=== PATIENT | female | born 1935 | race Caucasian/White ===

== ENCOUNTER 2017-12-13 18:36 | Inpatient (IN) | payer OTHER, MEDICARE ==
[~2017-12-13] VITALS: Ht 162.6 cm; Wt 83.0 kg
[2017-12-13] MEDS ORDERED: MIDAZOLAM HCL 5 MG/ML VIAL (1 ML) ONE (18:40)
[2017-12-13] MEDS ORDERED: IOHEXOL 350 MG/ML 10 ML VIAL (for RAD DIAG) IVCONTRAST ONE (18:45)
[2017-12-13 18:54] VITALS: O2SAT 99
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
[2017-12-13 19:08] LABS: AUTOMATED NEUTROPHIL # 5.3 TH/MM3 (1.8-7.7); BASOPHIL # 0.1 TH/MM3 (0-0.2); BASOPHIL % 1.2 % (0.0-2.0); EOSINOPHIL # 0.2 TH/MM3 (0-0.4); EOSINOPHIL % 2.1 % (0.0-4.0); HEMATOCRIT 42.9 % (35.0-46.0); HEMOGLOBIN 13.9 GM/DL (11.6-15.3); LYMPH % 34.3 % (9.0-44.0); LYMPHOCYTE # 3.5 TH/MM3 (1.0-4.8); MEAN CELL VOLUME 87.7 FL (80.0-100.0); MEAN CORPUSCULAR HEMOGLOBIN 28.4 PG (27.0-34.0); MEAN CORPUSCULAR HGB CONC 32.3 % (32.0-36.0); MONO % 10.4 % (0.0-8.0); PLATELET COUNT 317 TH/MM3 (150-450); RED BLOOD COUNT 4.88 MIL/MM3 (4.00-5.30); WHITE BLOOD COUNT 10.1 TH/MM3 (4.0-11.0)
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
--- NOTE | 2017-12-13 19:19 | RADRPT ---
EXAM DATE: 12/13/2017 7:08 PM EDT AGE/SEX: 89 years / Female INDICATIONS: Post reduction of left ankle dislocation. CLINICAL DATA: This is the patient's initial encounter. Patient reports that signs and symptoms have been present for 1 day and indicates a pain score of 10/10. MEDICAL/SURGICAL HISTORY: Non-responsive. Non-responsive. COMPARISON: No prior [place] exams available for comparison. FINDINGS: Nondisplaced fractures are identified through the distal left fibula and tibia. There is realignment of the ankle joint following closed reduction. Hindfoot is well aligned. CONCLUSION: Satisfactory reduction of a fracture dislocation involving the left ankle. Fracture distal tibia and fibula. Intact hindfoot. Electronically signed by: Blu Flynn MD 12/13/2017 7:18 PM EDT
[2017-12-13 19:22] LABS: PROTHROMBIN TIME - PATIENT 10.6 SEC (9.8-11.6)
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
[2017-12-13 19:56] VITALS: O2SAT 96
[2017-12-13] MEDS ORDERED: TYLE325T PO (20:29)
[2017-12-13] MEDS ORDERED: CHLORHEXIDINE GLUCONATE 2 % 1 PACK (2 CLOTHS) TOP PRN (20:30)
[2017-12-13] MEDS ORDERED: CYCL5TAB PO (20:30)
[2017-12-13] MEDS ORDERED: DIAZ5TAB PO (20:30)
[2017-12-13] MEDS ORDERED: FLUO0.1S9 (20:30)
[2017-12-13] MEDS ORDERED: fish oil PO (20:30)
[2017-12-13] MEDS ORDERED: CARV12.52 PO (20:30)
[2017-12-13] MEDS ORDERED: AMLO10TA2 PO (20:30)
[2017-12-13] MEDS ORDERED: ASPI-516 CHEW (20:30)
[2017-12-13] MEDS ORDERED: NURSING INFORMATION XX SCH (20:30)
[2017-12-13] MEDS ORDERED: APIX5TAB PO (20:30)
[2017-12-13] MEDS ORDERED: FERR325T18 PO (20:30)
[2017-12-13] MEDS: DOCUSATE SODIUM 100 MG CAP PO SCH (21:00)
[2017-12-13] MEDS: MORPHINE SULFATE 4 MG/ML INJ IV PUSH PRN ×2 (21:10→23:14)
[2017-12-13] MEDS: ONDANSETRON ODT 4 MG TAB PO PRN (21:10)
[2017-12-13] MEDS: LACTATED RINGER'S 1000 ML INJ 1,000 ML IV SCH (21:11)
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
[2017-12-13 21:45] VITALS: BP 153/98; PULSE 78; RESP 20; O2SAT 97
[2017-12-13 22:05] VITALS: BP 136/76; PULSE 79; RESP 20; TEMP 97.6; O2SAT 97
[2017-12-14] VITALS: BP 122/76; PULSE 82; RESP 22; TEMP 97.4; O2SAT 95
[2017-12-14] MEDS: MORPHINE SULFATE 4 MG/ML INJ IV PUSH PRN ×6 (01:13→20:29)
[2017-12-14] MEDS: ACETAMINOPHEN 1000 MG/100 ML 100 ML IV PRN ×3 (01:13→20:22)
[2017-12-14] MEDS ORDERED: LACTATED RINGER'S 1000 ML IV PRN (01:15)
[2017-12-14] MEDS ORDERED: CHLORHEXIDINE GLUCONATE 2 % 1 PACK (2 CLOTHS) TOPICAL PRN (01:15)
[2017-12-14] MEDS ORDERED: METOPROLOL TARTRATE 25 MG TAB PO PRN (01:15)
[2017-12-14] MEDS ORDERED: POVIDONE IODINE 5% (ANTISEPSIS KIT) 4 APPLICATIONS EACH NARE PRN (01:15)
[2017-12-14] MEDS ORDERED: SODIUM CHLORID 0.9% 500 ML IV PRN (01:15)
[2017-12-14] MEDS: KETOROLAC TROMETHAMINE 30 MG/ML (IVP) VIAL IV PUSH PRN ×2 (02:45→15:43)
[2017-12-14 04:00] VITALS: BP 130/63; PULSE 74; RESP 18; TEMP 98; O2SAT 95
[2017-12-14] MEDS ORDERED: CHLORHEXIDINE GLUCONATE 2 % 1 PACK (2 CLOTHS) TOP SCH (04:00)
[2017-12-14 04:05] LABS: AUTOMATED NEUTROPHIL # 8.3 TH/MM3 (1.8-7.7); BASOPHIL % 0.4 % (0.0-2.0); EOSINOPHIL # 0.1 TH/MM3 (0-0.4); EOSINOPHIL % 0.7 % (0.0-4.0); HEMATOCRIT 32.6 % (35.0-46.0); HEMOGLOBIN 10.7 GM/DL (11.6-15.3); LYMPH % 16.4 % (9.0-44.0); LYMPHOCYTE # 1.9 TH/MM3 (1.0-4.8); MEAN CELL VOLUME 87.3 FL (80.0-100.0); MEAN CORPUSCULAR HEMOGLOBIN 28.5 PG (27.0-34.0); MEAN CORPUSCULAR HGB CONC 32.7 % (32.0-36.0); MEAN PLATELET VOLUME 7.6 FL (7.0-11.0); MONO % 10.5 % (0.0-8.0); MONOCYTE # 1.2 TH/MM3 (0-0.9); PLATELET COUNT 243 TH/MM3 (150-450); RED BLOOD COUNT 3.74 MIL/MM3 (4.00-5.30); RED CELL DISTRIBUTION WIDTH 13.8 % (11.6-17.2); WHITE BLOOD COUNT 11.5 TH/MM3 (4.0-11.0)
[2017-12-14 04:32] LABS: BICARBONATE 27.7 MEQ/L (21.0-32.0); CALCIUM 7.8 MG/DL (8.5-10.1); CREATININE 1.16 MG/DL (0.50-1.00)
--- NOTE | 2017-12-14 07:53 | EKG ---
Date Performed: 12/14/2017 Time Performed: 04:51:12 PTAGE: 82 years EKG: Sinus rhythm . Lateral T wave changes are nonspecific Borderline ECG NO PREVIOUS TRACING DOCTOR: Boogie Bryant Interpretating Date/Time 12/14/2017 07:50:59
[2017-12-14 08:00] VITALS: BP 123/58; PULSE 68; RESP 16; TEMP 98.2; O2SAT 93
[2017-12-14] MEDS: DOCUSATE SODIUM 100 MG CAP PO SCH ×2 (09:00→20:23)
[2017-12-14] MEDS: MAGNESIUM HYDROXIDE SUSP 30 ML CUP PO SCH ×2 (09:00→20:23)
[2017-12-14] MEDS: FAMOTIDINE 20 MG TAB PO SCH ×2 (09:00→20:23)
[2017-12-14] MEDS: LACTATED RINGER'S 1000 ML INJ 1,000 ML IV SCH ×2 (09:03→20:28)
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
[2017-12-14 12:00] VITALS: BP 148/67; PULSE 75; RESP 16; TEMP 98; O2SAT 94
[2017-12-14] MEDS ORDERED: DIAZEPAM 5 MG TAB PO PRN (12:45)
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
--- NOTE | 2017-12-14 14:47 | RADRPT ---
EXAM DATE: 12/14/2017 2:40 PM EDT AGE/SEX: 82 years / Female INDICATIONS: Left ankle pain, follow up fracture. CLINICAL DATA: This is the patient's subsequent encounter. Patient reports that signs and symptoms h ave been present for 1 week and indicates a pain score of 10/10. MEDICAL/SURGICAL HISTORY: None. None. COMPARISON: . FINDINGS: Views of the left ankle demonstrate soft tissue swelling. Bimalleolar fractures with displacement. An kle mortise intact. No radiopaque foreign bodies seen. CONCLUSION: Bimalleolar fractures. Electronically signed by: Mane Garrison MD 12/14/2017 2:46 PM EDT
[2017-12-14 16:00] VITALS: BP 166/73; PULSE 75; RESP 16; TEMP 97.9; O2SAT 97
[2017-12-14 20:00] VITALS: BP 127/61; PULSE 76; RESP 17; TEMP 98.1; O2SAT 96
[2017-12-14] MEDS: CARVEDILOL 12.5 MG TAB PO SCH (20:24)
[2017-12-14] MEDS ORDERED: ACETAMINOPHEN/HYDROcodone 325 MG/5 MG TAB PO PRN (20:45)
[2017-12-14] MEDS: KETOROLAC TROMETHAMINE 30 MG/ML (IVP) VIAL IV PUSH SCH (22:12)
[2017-12-14] MEDS: ACETAMINOPHEN/HYDROcodone 325 MG/7.5 MG TAB PO PRN (22:12)
[2017-12-15] VITALS: BP 168/70; PULSE 68; RESP 18; TEMP 98; O2SAT 93
[2017-12-15] MEDS: MORPHINE SULFATE 4 MG/ML INJ IV PUSH PRN ×3 (00:24→14:44)
[2017-12-15] MEDS ORDERED: METOPROLOL TARTRATE 25 MG TAB PO PRN (03:00)
[2017-12-15] MEDS ORDERED: CHLORHEXIDINE GLUCONATE 2 % 1 PACK (2 CLOTHS) TOPICAL PRN (03:00)
[2017-12-15] MEDS ORDERED: LACTATED RINGER'S 1000 ML IV PRN (03:00)
[2017-12-15] MEDS ORDERED: SODIUM CHLORID 0.9% 500 ML IV PRN (03:00)
[2017-12-15] MEDS ORDERED: POVIDONE IODINE 5% (ANTISEPSIS KIT) 4 APPLICATIONS EACH NARE PRN (03:00)
[2017-12-15] MEDS: ONDANSETRON ODT 4 MG TAB PO PRN (03:49)
[2017-12-15 04:00] VITALS: BP 163/70; PULSE 73; RESP 18; TEMP 97.9; O2SAT 93
[2017-12-15] MEDS: KETOROLAC TROMETHAMINE 30 MG/ML (IVP) VIAL IV PUSH SCH ×4 (06:07→23:33)
[2017-12-15] MEDS: ACETAMINOPHEN/HYDROcodone 325 MG/7.5 MG TAB PO PRN ×4 (06:08→22:14)
[2017-12-15 06:13] LABS: AUTOMATED NEUTROPHIL # 7.2 TH/MM3 (1.8-7.7); BASOPHIL % 0.4 % (0.0-2.0); EOSINOPHIL # 0.2 TH/MM3 (0-0.4); EOSINOPHIL % 2.3 % (0.0-4.0); HEMATOCRIT 30.9 % (35.0-46.0); HEMOGLOBIN 10.2 GM/DL (11.6-15.3); LYMPHOCYTE # 1.3 TH/MM3 (1.0-4.8); MEAN CELL VOLUME 88.7 FL (80.0-100.0); MEAN CORPUSCULAR HEMOGLOBIN 29.2 PG (27.0-34.0); MEAN CORPUSCULAR HGB CONC 32.9 % (32.0-36.0); MEAN PLATELET VOLUME 7.9 FL (7.0-11.0); MONO % 10.7 % (0.0-8.0); NEUT % 73.6 % (16.0-70.0); PLATELET COUNT 202 TH/MM3 (150-450); RED BLOOD COUNT 3.49 MIL/MM3 (4.00-5.30); RED CELL DISTRIBUTION WIDTH 13.4 % (11.6-17.2); WHITE BLOOD COUNT 9.7 TH/MM3 (4.0-11.0)
[2017-12-15 06:40] LABS: CALCIUM 7.9 MG/DL (8.5-10.1); CREATININE 0.92 MG/DL (0.50-1.00); MAGNESIUM 2.6 MG/DL (1.5-2.5)
[2017-12-15 08:00] VITALS: BP 124/58; PULSE 70; RESP 18; TEMP 98.4; O2SAT 94
[2017-12-15] MEDS: CARVEDILOL 12.5 MG TAB PO SCH ×2 (08:11→19:49)
[2017-12-15] MEDS: MAGNESIUM HYDROXIDE SUSP 30 ML CUP PO SCH ×2 (08:11→19:48)
[2017-12-15] MEDS: FAMOTIDINE 20 MG TAB PO SCH ×2 (08:11→19:49)
[2017-12-15] MEDS: DOCUSATE SODIUM 100 MG CAP PO SCH ×2 (08:11→19:49)
[2017-12-15] MEDS: LACTATED RINGER'S 1000 ML INJ 1,000 ML IV SCH (08:20)
[2017-12-15] MEDS ORDERED: PILL SPLITTER OTHER PRN (08:45)
[2017-12-15] MEDS: CYCLOBENZAPRINE HCL 10 MG TAB PO SCH ×2 (10:22→19:49)
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
[2017-12-15 12:00] VITALS: BP 134/60; PULSE 66; RESP 18; TEMP 98; O2SAT 92
[2017-12-15] MEDS: ENOXAPARIN SODIUM 40 MG/0.4 ML SYRINGE SQ SCH (12:51)
[2017-12-15 16:00] VITALS: BP 114/57; PULSE 64; RESP 18; TEMP 97.9; O2SAT 91
[2017-12-15 19:47] VITALS: BP 125/58; PULSE 60; RESP 18; TEMP 97.9; O2SAT 92
[2017-12-16] VITALS (7 sets, daily range): BP systolic 100–134; BP diastolic 53–60; PULSE 58–68; RESP 17–20; TEMP 97.1–98.3; O2SAT 91–95
[2017-12-16] MEDS: KETOROLAC TROMETHAMINE 30 MG/ML (IVP) VIAL IV PUSH SCH ×3 (05:56→18:00)
[2017-12-16] MEDS ORDERED: ACETAMINOPHEN 325 MG TAB PO PRN (07:15)
[2017-12-16] MEDS: MAGNESIUM HYDROXIDE SUSP 30 ML CUP PO SCH ×2 (09:00→20:58)
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
[2017-12-16] MEDS: POLYETHYLENE GLYCOL 17 GM PKG PO SCH (09:46)
[2017-12-16] MEDS: DOCUSATE SODIUM 50 MG/SENNA 8.6 MG TAB PO SCH ×2 (09:46→21:00)
[2017-12-16] MEDS: FAMOTIDINE 20 MG TAB PO SCH ×2 (09:46→20:59)
[2017-12-16] MEDS: DOCUSATE SODIUM 100 MG CAP PO SCH ×2 (09:46→20:58)
[2017-12-16] MEDS: CARVEDILOL 12.5 MG TAB PO SCH ×2 (09:46→20:59)
[2017-12-16] MEDS: FERROUS SULFATE 325 MG (65 MG ELEMENTAL IRON) TAB PO SCH (09:46)
[2017-12-16] MEDS: CYCLOBENZAPRINE HCL 10 MG TAB PO SCH ×2 (09:47→20:59)
[2017-12-16] MEDS: ACETAMINOPHEN/HYDROcodone 325 MG/7.5 MG TAB PO PRN (09:48)
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
[2017-12-16] MEDS: ENOXAPARIN SODIUM 40 MG/0.4 ML SYRINGE SQ SCH (11:13)
[2017-12-16] MEDS: MORPHINE SULFATE 4 MG/ML INJ IV PUSH PRN ×2 (11:13→13:10)
--- NOTE | 2017-12-16 13:49 | RADRPT ---
EXAM DATE: 12/16/2017 1:03 PM EDT AGE/SEX: 82 years / Female INDICATIONS: Atrial fibrillation. CLINICAL DATA: This is the patient's initial encounter. Patient reports that signs and symptoms have been present for 1 day and indicates a pain score of 8/10. MEDICAL/SURGICAL HISTORY: Hypercholesterolemia. Hypertension. Coronary artery disease. Myocard ial infarction. Left ankle fracture. Abdomen-benign diaphragmatic hernia. CABG. Bilateral knee surge ry. COMPARISON: No prior [place] exams available for comparison. No external comparison. VELOCITY PARAMETERS: ICA/CCA Ratio: Right 0.7 , Left 1.2 ICA: Right 96 cm/sec, Left 110 cm/sec CCA: Right 142 cm/sec, Left 93 cm/sec ECA: Right 270 cm/sec, Left 97 cm/sec Vertebral: Right 79 cm/sec antegrade, Left Nonvisualized cm/sec absent FINDINGS: Right Carotid: No significant stenosis is visualized. The waveforms are within normal limits. Left Carotid: No significant stenosis is visualized. The waveforms are within normal limits Left vert is not visualized. CONCLUSION: Negative for hemodynamically significant stenosis. Left vertebral artery not visualized. Electronically signed by: Carlin Pina MD 12/16/2017 1:48 PM EDT
--- NOTE | 2017-12-16 14:39 | ECHRPT ---
Indication: ATRIAL FIB/FLUTTER CONCLUSIONS Normal left ventricular size. Wall thickness is normal. The left ventricular systolic function is hyperdynamic with an estimated ejection fraction in the ra nge of 65- 70%. Mild mitral valve regurgitation. Mild mitral annular calcification. There is moderate tricuspid valve regurgitation. The estimated pulmonary arterial pressure is 53.6 mmHg. There is estimated moderate pulmonary hypertension present (range 50-60 mmHg). BP: 124 / 58 HR: Rhythm: Sinus MEASUREMENTS (Male / Female) Normal Values Technical Quality:Fair 2D ECHO LV Diastolic Diameter PLAX 4.3 cm 4.2 - 5.9 / 3.9 - 5.3 cm LV Systolic Diameter PLAX 2.8 cm IVS Diastolic Thickness 0.8 cm 0.6 - 1.0 / 0.6 - 0.9 cm LVPW Diastolic Thickness 0.8 cm 0.6 - 1.0 / 0.6 - 0.9 cm LV Relative Wall Thickness 0.4 RV Internal Dim ED PLAX 2.2 cm LVOT Diameter 1.6 cm Aortic Root Diameter 2.3 cm LA Systolic Diameter LX 3.4 cm 3.0 - 4.0 / 2.7 - 3.8 cm M-MODE AV Cusp Separation MM 1.7 cm DOPPLER AV Peak Velocity 199.0 cm/s AV Peak Gradient 15.8 mmHg AV Mean Gradient 8.0 mmHg AV Velocity Time Integral 46.3 cm LVOT Peak Velocity 79.7 cm/s LVOT Peak Gradient 2.5 mmHg LVOT Velocity Time Integral 19.3 cm AV Area Cont Eq vti 0.8 cm AV Area Cont Eq pk 0.8 cm Mitral E Point Velocity 122.0 cm/s Mitral A Point Velocity 76.5 cm/s Mitral E to A Ratio 1.6 TR Peak Velocity 330.0 cm/s TR Peak Gradient 43.6 mmHg Right Atrial Pressure 10.0 mmHg Pulmonary Artery Systolic Pressu 53.6 mmHg Right Ventricular Systolic Press 53.6 mmHg PV Peak Velocity 82.0 cm/s PV Peak Gradient 2.7 mmHg FINDINGS LEFT VENTRICLE Normal left ventricular size. Wall thickness is normal. The left ventricular systolic function is hyperdynamic with an estimated ejection fraction in the ra nge of 65- 70%. RIGHT VENTRICLE Normal right ventricular size and systolic function. LEFT ATRIUM The left atrial size is normal. RIGHT ATRIUM The right atrial size is normal. ATRIAL SEPTUM No atrial level shunt is demonstrated by color flow Doppler interrogation. AORTA The aortic root and proximal ascending aorta are normal in size on limited imaging. MITRAL VALVE Mild mitral valve regurgitation. Mild mitral annular calcification. AORTIC VALVE Trileaflet aortic valve. No aortic valve stenosis or regurgitation. TRICUSPID VALVE There is mild tricuspid valve regurgitation. The estimated pulmonary arterial pressure is 53.6 mmHg. There is estimated moderate pulmonary hypertension present (range 50-60 mmHg). PULMONARY VALVE No pulmonary valve regurgitation or stenosis. VESSELS The inferior vena cava is normal in size. PERICARDIUM No pericardial effusion. Scooter Hernandez MD, FACC, [facility] (Electronically Signed) Final Date:16 Dec 2017 14:38
[2017-12-16] MEDS ORDERED: MORPHINE SULFATE 4 MG/ML INJ IV PUSH PRN (14:45)
[2017-12-16] MEDS: ACETAMINOPHEN/HYDROcodone 325 MG/10 MG TAB PO PRN ×2 (16:06→20:58)
--- NOTE | 2017-12-16 21:24 | PD.POD ---
Subjective Podiatric Problems Left ankle fracture Past Med/Surg/Social History Social History Smoking Status: Never Smoker Objective Vital Signs Vital Signs Date Time Temp Pulse Resp B/P (MAP) Pulse Ox O2 Delivery O2 Flow Rate FiO2 12/16/17 16:00 97.8 60 18 112/56 (74) 94 12/16/17 12:25 97.7 59 18 124/58 (80) 91 12/16/17 08:00 97.5 58 17 112/53 (72) 92 12/16/17 04:00 98.1 63 18 129/58 (81) 93 12/16/17 00:00 97.9 64 20 103/60 (74) 94 Coded Allergies: Sulfa (Sulfonamide Antibiotics) (Verified Allergy, Mild, 12/13/17) levofloxacin (Verified Allergy, Mild, 12/13/17) Uncoded Allergies: sulfa (Allergy, Severe, tongue swelling, 12/13/17) Assessment & Plan A/P Left ankle fracture Plan to OR tomorrow 2 pm for ORIF left ankle OK with discharge home when pain controlled on oral medications Nonweightbearing left lower extremity NPO after midnight Anshul Rodriguez DPM December 16, 2017 21:24
[2017-12-17] MEDS: KETOROLAC TROMETHAMINE 30 MG/ML (IVP) VIAL IV PUSH SCH ×4 (00:05→17:40)
[2017-12-17] MEDS ORDERED: SODIUM CHLORID 0.9% 500 ML INJ 500 ML IV ONE (01:00)
[2017-12-17 08:00] VITALS: BP 117/57; PULSE 60; RESP 16; TEMP 97.7; O2SAT 98
[2017-12-17] MEDS: FERROUS SULFATE 325 MG (65 MG ELEMENTAL IRON) TAB PO SCH (09:00)
[2017-12-17] MEDS: CARVEDILOL 12.5 MG TAB PO SCH ×2 (09:00→20:24)
[2017-12-17] MEDS: MAGNESIUM HYDROXIDE SUSP 30 ML CUP PO SCH ×2 (09:00→20:24)
[2017-12-17] MEDS: DOCUSATE SODIUM 50 MG/SENNA 8.6 MG TAB PO SCH ×2 (09:00→20:24)
[2017-12-17] MEDS: FAMOTIDINE 20 MG TAB PO SCH ×2 (09:00→20:24)
[2017-12-17] MEDS: DOCUSATE SODIUM 100 MG CAP PO SCH ×2 (09:00→20:24)
[2017-12-17] MEDS: POLYETHYLENE GLYCOL 17 GM PKG PO SCH (09:00)
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
[2017-12-17] MEDS: CYCLOBENZAPRINE HCL 10 MG TAB PO SCH ×2 (09:15→20:24)
[2017-12-17] MEDS: ENOXAPARIN SODIUM 40 MG/0.4 ML SYRINGE SQ SCH (10:26)
[2017-12-17] MEDS: ACETAMINOPHEN/HYDROcodone 325 MG/10 MG TAB PO PRN ×3 (10:26→18:36)
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
[2017-12-17 12:00] VITALS: BP_SYST 112; PULSE 61; RESP 16; TEMP 98.2; O2SAT 94
[2017-12-17] MEDS: ASPIRIN 81 MG CHEW TAB CHEW SCH (12:00)
[2017-12-17] MEDS ORDERED: GENTAMICIN SULFATE 80 MG/2 ML VIAL ONE (13:22)
[2017-12-17 16:00] VITALS: BP 163/70; PULSE 67; RESP 16; TEMP 97.9; O2SAT 93
--- NOTE | 2017-12-17 19:49 | PD.POD ---
Subjective Podiatric Problems Left ankle fracture Past Med/Surg/Social History Social History Smoking Status: Never Smoker Objective Vital Signs Vital Signs Date Time Temp Pulse Resp B/P (MAP) Pulse Ox O2 Delivery O2 Flow Rate FiO2 12/17/17 16:00 97.9 67 16 163/70 (101) 93 12/17/17 12:00 98.2 61 16 112/ 94 12/17/17 09:20 96 Room Air 12/17/17 08:00 97.7 60 16 117/57 (77) 98 12/16/17 23:40 97.1 68 18 134/57 (82) 93 12/16/17 20:55 93 Nasal Cannula 2.00 Coded Allergies: Sulfa (Sulfonamide Antibiotics) (Verified Allergy, Mild, 12/13/17) levofloxacin (Verified Allergy, Mild, 12/13/17) Uncoded Allergies: sulfa (Allergy, Severe, tongue swelling, 12/13/17) Assessment & Plan A/P Left ankle fracture Surgery canceled today due to patient telling anesthesia she ate toast, however, in later discussion, patient was remembering and verbalizing what happened the previous day and later said she had no breakfast today. Will make patient NPO after breakfast tomorrow in case surgery at [facility] early Possible to OR tomorrow 530 pm for ORIF left ankle OK with discharge home when pain controlled on oral medications Nonweightbearing left lower extremity NPO after breakfast tomorrow Anshul Rodriguez DPM December 17, 2017 19:48
[2017-12-17 19:50] VITALS: BP 159/65; PULSE 71; RESP 17; TEMP 98.2; O2SAT 96
[2017-12-18 00:05] VITALS: BP 133/60; PULSE 69; RESP 18; TEMP 98.4; O2SAT 94
[2017-12-18 08:00] VITALS: BP 123/75; PULSE 71; RESP 19; TEMP 98.7; O2SAT 92
[2017-12-18 08:35] VITALS: BP 149/60
[2017-12-18] MEDS: POLYETHYLENE GLYCOL 17 GM PKG PO SCH (08:45)
[2017-12-18] MEDS: DOCUSATE SODIUM 100 MG CAP PO SCH ×2 (08:45→21:00)
[2017-12-18] MEDS: DOCUSATE SODIUM 50 MG/SENNA 8.6 MG TAB PO SCH ×2 (08:47→21:00)
[2017-12-18] MEDS: MAGNESIUM HYDROXIDE SUSP 30 ML CUP PO SCH ×2 (08:48→21:00)
[2017-12-18] MEDS: ASPIRIN 81 MG CHEW TAB CHEW SCH (08:48)
[2017-12-18] MEDS: FERROUS SULFATE 325 MG (65 MG ELEMENTAL IRON) TAB PO SCH (08:53)
[2017-12-18] MEDS: CYCLOBENZAPRINE HCL 10 MG TAB PO SCH ×2 (08:53→21:00)
[2017-12-18] MEDS: FAMOTIDINE 20 MG TAB PO SCH ×2 (08:53→21:00)
[2017-12-18] MEDS: CARVEDILOL 12.5 MG TAB PO SCH ×2 (08:53→21:00)
[2017-12-18] MEDS: ACETAMINOPHEN/HYDROcodone 325 MG/10 MG TAB PO PRN (08:54)
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
[2017-12-18] MEDS: ENOXAPARIN SODIUM 40 MG/0.4 ML SYRINGE SQ SCH (11:00)
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
[2017-12-18 12:00] VITALS: BP 133/59; PULSE 66; RESP 18; TEMP 98.1; O2SAT 94
[2017-12-18 16:00] VITALS: BP 135/60; PULSE 70; RESP 18; TEMP 98.1; O2SAT 96
[2017-12-18] MEDS: GENTAMICIN SULFATE 80 MG/2 ML VIAL ONE ×2 (17:30→18:51)
[2017-12-18] MEDS: ceFAZolin 2 GM PREMIX 50 ML ONE ×2 (17:31→18:28)
[2017-12-18] MEDS ORDERED: KETAMINE HCL 500 MG/10 ML VIAL ONE (17:54)
[2017-12-18] MEDS: BUPIVACAINE HCL PF 0.5% 30 ML VIAL ONE ×2 (18:17→22:33)
[2017-12-18] MEDS ORDERED: ACETAMINOPHEN 1000 MG/100 ML 100 ML IV ONE (19:00)
[2017-12-18] MEDS ORDERED: ceFAZolin 2 GM PREMIX 50 ML ONE (22:26)
--- NOTE | 2017-12-18 22:49 | RADRPT ---
EXAM DATE: 12/18/2017 10:31 PM EDT AGE/SEX: 82 years / Female INDICATIONS: Open reduction internal fixation of left ankle fracture CLINICAL DATA: This is the patient's initial encounter. Patient reports that signs and symptoms have been present for 1 day and indicates a pain score of Nonresponsive. MEDICAL/SURGICAL HISTORY: None. None. COMPARISON: [facility] [place], ANKLE LEFT LIMITED (AP&LAT), 12/13/2017. . FINDINGS: Multiple coned down views of the ankle were obtained using a matrix camera and demonstrate placement of a screw plate fixation device transfixing the distal fibular fracture. The fracture fragments are in anatomic alignment. A smaller screw plate fixation device was placed along the lateral malleolus a nd distal tibia. Fracture fragments are in anatomic alignment as well. An external fixation device is noted on image #1 with 2 screws in the mid tibia. CONCLUSION: 1. Status post open rigid internal fixation of the distal tibia and fibula. 2. Placement of external fixation device with 2 pins in the mid tibia. Electronically signed by: Jeancarlos Peguero MD 12/18/2017 10:48 PM EDT
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
[2017-12-18] MEDS ORDERED: DO NOT ADM ANY ANTICOAGULANT DRUGS PRN (23:15)
[2017-12-18] MEDS ORDERED: SUGAMMADEX SODIUM 200 MG/2 ML VIAL IV PUSH ONE ×2 (23:22→23:24)
[2017-12-19] VITALS (7 sets, daily range): BP systolic 115–155; BP diastolic 52–81; PULSE 64–78; RESP 17–20; TEMP 97.6–98.9; O2SAT 92–98
[2017-12-19] MEDS ORDERED: LACTATED RINGER'S 1000 ML INJ 1,000 ML ONE (00:08)
--- NOTE | 2017-12-19 00:43 | RADRPT ---
EXAM DATE: 12/18/2017 11:47 PM EDT AGE/SEX: 82 years / Female INDICATIONS: Post op ORIF left ankle CLINICAL DATA: This is the patient's initial encounter. Patient reports that signs and symptoms have been present for 1 day and indicates a pain score of Nonresponsive. MEDICAL/SURGICAL HISTORY: None. None. COMPARISON: [facility] [place], ANKLE LEFT COMPLETE ([id number]), 12/14/2017. . FINDINGS: Surgical hardware seen at the ankle. This includes a long lateral plate along the fibula. There is a shorter plate along the anterior medial aspect of the tibia. These are secured by multiple screws. Th ere is a long screw extending from the lateral fibular plate through the tibial shaft. The hardware a ll appears well placed. The lateral and medial malleoli fractures appear aligned. There is evidence o f prior tracks through the posterior calcaneus and the distal tibial shaft. There is some hypertrophi c change at the dorsal midfoot. CONCLUSION: Status post ORIF. Electronically signed by: Jaron Nielsen MD 12/19/2017 12:42 AM EDT
[2017-12-19] MEDS: DOCUSATE SODIUM 50 MG/SENNA 8.6 MG TAB PO SCH ×2 (09:00→20:59)
[2017-12-19] MEDS: POLYETHYLENE GLYCOL 17 GM PKG PO SCH (09:00)
[2017-12-19] MEDS: MAGNESIUM HYDROXIDE SUSP 30 ML CUP PO SCH ×2 (09:00→21:00)
[2017-12-19] MEDS: CYCLOBENZAPRINE HCL 10 MG TAB PO SCH ×2 (09:33→21:00)
[2017-12-19] MEDS: FERROUS SULFATE 325 MG (65 MG ELEMENTAL IRON) TAB PO SCH (09:33)
[2017-12-19] MEDS: DOCUSATE SODIUM 100 MG CAP PO SCH ×2 (09:33→21:00)
[2017-12-19] MEDS: ASPIRIN 81 MG CHEW TAB CHEW SCH (09:34)
[2017-12-19] MEDS: ENOXAPARIN SODIUM 40 MG/0.4 ML SYRINGE SQ SCH (09:34)
[2017-12-19] MEDS: CARVEDILOL 12.5 MG TAB PO SCH ×2 (09:34→20:59)
[2017-12-19] MEDS: FAMOTIDINE 20 MG TAB PO SCH ×2 (09:34→21:00)
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
[2017-12-19] MEDS: ACETAMINOPHEN/HYDROcodone 325 MG/10 MG TAB PO PRN ×2 (13:22→19:49)
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
[2017-12-20] MEDS: ACETAMINOPHEN/HYDROcodone 325 MG/10 MG TAB PO PRN ×2 (00:37→09:04)
[2017-12-20 03:39] VITALS: BP 133/62; PULSE 72; RESP 18; TEMP 98.3; O2SAT 92
[2017-12-20 08:00] VITALS: BP 125/71; PULSE 64; RESP 18; TEMP 97.7; O2SAT 97
[2017-12-20] MEDS: POLYETHYLENE GLYCOL 17 GM PKG PO SCH (09:00)
[2017-12-20] MEDS: DOCUSATE SODIUM 100 MG CAP PO SCH ×2 (09:00→21:00)
[2017-12-20] MEDS: MAGNESIUM HYDROXIDE SUSP 30 ML CUP PO SCH ×2 (09:00→21:00)
[2017-12-20] MEDS: DOCUSATE SODIUM 50 MG/SENNA 8.6 MG TAB PO SCH ×2 (09:00→21:00)
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
[2017-12-20] MEDS: FAMOTIDINE 20 MG TAB PO SCH ×2 (10:08→21:39)
[2017-12-20] MEDS: FERROUS SULFATE 325 MG (65 MG ELEMENTAL IRON) TAB PO SCH (10:08)
[2017-12-20] MEDS: ASPIRIN 81 MG CHEW TAB CHEW SCH (10:09)
[2017-12-20] MEDS: CYCLOBENZAPRINE HCL 10 MG TAB PO SCH ×2 (10:09→21:39)
[2017-12-20] MEDS: CARVEDILOL 12.5 MG TAB PO SCH ×2 (10:09→21:39)
[2017-12-20 10:28] LABS: HEMATOCRIT 24.3 % (35.0-46.0); MEAN CELL VOLUME 89.3 FL (80.0-100.0); MEAN CORPUSCULAR HEMOGLOBIN 29.4 PG (27.0-34.0); MEAN PLATELET VOLUME 7.6 FL (7.0-11.0); PLATELET COUNT 293 TH/MM3 (150-450); RED BLOOD COUNT 2.72 MIL/MM3 (4.00-5.30); RED CELL DISTRIBUTION WIDTH 13.9 % (11.6-17.2); WHITE BLOOD COUNT 10.5 TH/MM3 (4.0-11.0)
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
[2017-12-20] MEDS: DIAZEPAM 2 MG TAB PO SCH (11:16)
[2017-12-20] MEDS: GABAPENTIN 300 MG CAP PO SCH ×2 (11:16→21:39)
[2017-12-20 12:00] VITALS: BP 117/51; PULSE 73; RESP 18; TEMP 98.4; O2SAT 96
[2017-12-20] MEDS ORDERED: POLY17S PO (13:52)
[2017-12-20] MEDS ORDERED: NEUR300C PO (13:52)
[2017-12-20] MEDS ORDERED: PERI PO (13:52)
[2017-12-20 16:00] VITALS: BP 108/52; PULSE 66; RESP 18; TEMP 97.8; O2SAT 96
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
[2017-12-20 19:00] VITALS: BP 165/74; PULSE 77; RESP 18; TEMP 97.6; O2SAT 94
[2017-12-20] MEDS: APIXABAN 5 MG TABLET PO SCH (21:39)
[2017-12-20 23:54] VITALS: BP 116/60; PULSE 80; RESP 17; TEMP 98.9; O2SAT 93
[2017-12-21] MEDS ORDERED: PERC5TAB12 PO (07:40)
[2017-12-21 08:00] VITALS: BP 138/63; PULSE 64; RESP 17; TEMP 98.4; O2SAT 97
[2017-12-21] MEDS: DOCUSATE SODIUM 50 MG/SENNA 8.6 MG TAB PO SCH ×2 (09:47→21:24)
[2017-12-21] MEDS: ASPIRIN 81 MG CHEW TAB CHEW SCH (09:48)
[2017-12-21] MEDS: GABAPENTIN 300 MG CAP PO SCH ×2 (09:48→21:24)
[2017-12-21] MEDS: FERROUS SULFATE 325 MG (65 MG ELEMENTAL IRON) TAB PO SCH (09:48)
[2017-12-21] MEDS: DOCUSATE SODIUM 100 MG CAP PO SCH ×2 (09:48→21:24)
[2017-12-21] MEDS: APIXABAN 5 MG TABLET PO SCH ×2 (09:48→21:23)
[2017-12-21] MEDS: CYCLOBENZAPRINE HCL 10 MG TAB PO SCH ×2 (09:48→21:23)
[2017-12-21] MEDS: CARVEDILOL 12.5 MG TAB PO SCH ×2 (09:48→21:24)
[2017-12-21] MEDS: POLYETHYLENE GLYCOL 17 GM PKG PO SCH (09:49)
[2017-12-21] MEDS: MAGNESIUM HYDROXIDE SUSP 30 ML CUP PO SCH ×2 (09:49→21:23)
[2017-12-21] MEDS: FAMOTIDINE 20 MG TAB PO SCH ×2 (09:49→21:24)
[2017-12-21] MEDS: DIAZEPAM 2 MG TAB PO SCH (09:49)
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
[2017-12-21 11:20] LABS: BICARBONATE 24.9 MEQ/L (21.0-32.0); CALCIUM 7.7 MG/DL (8.5-10.1); CREATININE 0.87 MG/DL (0.50-1.00)
[2017-12-21 12:00] VITALS: BP 138/65; PULSE 79; RESP 18; TEMP 98.1; O2SAT 97
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
[2017-12-21 16:00] VITALS: BP 140/63; PULSE 78; RESP 18; TEMP 97.5; O2SAT 96
[2017-12-21 20:30] VITALS: BP 149/67; PULSE 68; RESP 18; TEMP 99; O2SAT 97
[2017-12-22] VITALS: BP 146/68; PULSE 63; RESP 19; TEMP 98.4; O2SAT 96
[2017-12-22 04:02] LABS: HEMATOCRIT 22.9 % (35.0-46.0); HEMOGLOBIN 7.5 GM/DL (11.6-15.3); MEAN CELL VOLUME 88.6 FL (80.0-100.0); MEAN CORPUSCULAR HEMOGLOBIN 28.8 PG (27.0-34.0); MEAN CORPUSCULAR HGB CONC 32.5 % (32.0-36.0); PLATELET COUNT 313 TH/MM3 (150-450); RED BLOOD COUNT 2.59 MIL/MM3 (4.00-5.30); RED CELL DISTRIBUTION WIDTH 13.6 % (11.6-17.2)
[2017-12-22 08:00] VITALS: BP 112/69; PULSE 59; RESP 16; TEMP 97.9; O2SAT 96
[2017-12-22] MEDS: ASPIRIN 81 MG CHEW TAB CHEW SCH (08:47)
[2017-12-22] MEDS: CYCLOBENZAPRINE HCL 10 MG TAB PO SCH (08:47)
[2017-12-22] MEDS: DOCUSATE SODIUM 50 MG/SENNA 8.6 MG TAB PO SCH (08:47)
[2017-12-22] MEDS: GABAPENTIN 300 MG CAP PO SCH (08:47)
[2017-12-22] MEDS: FERROUS SULFATE 325 MG (65 MG ELEMENTAL IRON) TAB PO SCH (08:47)
[2017-12-22] MEDS: APIXABAN 5 MG TABLET PO SCH (08:47)
[2017-12-22] MEDS: DOCUSATE SODIUM 100 MG CAP PO SCH (08:47)
[2017-12-22] MEDS: FAMOTIDINE 20 MG TAB PO SCH (08:47)
[2017-12-22] MEDS: DIAZEPAM 2 MG TAB PO SCH (08:48)
[2017-12-22] MEDS: POLYETHYLENE GLYCOL 17 GM PKG PO SCH (08:49)
[2017-12-22] MEDS: MAGNESIUM HYDROXIDE SUSP 30 ML CUP PO SCH (08:49)
[2017-12-22] MEDS: CARVEDILOL 12.5 MG TAB PO SCH (08:55)
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
[2017-12-22 12:00] VITALS: BP 136/65; PULSE 68; RESP 16; TEMP 97.9; O2SAT 94
[2017-12-22 13:44] VITALS: O2SAT 96
[2017-12-22 16:00] VITALS: BP 170/72; PULSE 69; RESP 17; TEMP 97.5; O2SAT 90
== END 2017-12-22 18:22 | DRG 493 ==
LOC: NEPI 18:36 → EDBD 19:57 → NEDA 19:57 → N06B 21:57
PROVIDERS: ADMIT Surgery Trauma Surgery; ATTEND Surgery Trauma Surgery
PROC: 0SSGXZZ Reposition Left Ankle Joint, External Approach (ICD-10-PCS; 2017-12-13)
PROC: 0QSH04Z Reposition Left Tibia with Internal Fixation Device, Open Approach (ICD-10-PCS; 2017-12-18)
PROC: 0QUH0KZ Supplement Left Tibia with Nonautologous Tissue Substitute, Open Approach (ICD-10-PCS; 2017-12-18)
PROC: 0SSG04Z Reposition Left Ankle Joint with Internal Fixation Device, Open Approach (ICD-10-PCS; 2017-12-18)
PROC: 0QSK04Z Reposition Left Fibula with Internal Fixation Device, Open Approach (ICD-10-PCS; principal; 2017-12-18 18:04)
DX: S82.842A Displaced bimalleolar fracture of left lower leg, initial encounter for closed fracture (principal); D62 Acute posthemorrhagic anemia; Z95.1 Presence of aortocoronary bypass graft; I48.0 Paroxysmal atrial fibrillation; I10 Essential (primary) hypertension; I25.10 Atherosclerotic heart disease of native coronary artery without angina pectoris; S93.432A Sprain of tibiofibular ligament of left ankle, initial encounter; E78.5 Hyperlipidemia, unspecified; Z96.612 Presence of left artificial shoulder joint; Z96.642 Presence of left artificial hip joint; S93.05XA Dislocation of left ankle joint, initial encounter; S10.93XA Contusion of unspecified part of neck, initial encounter; S00.83XA Contusion of other part of head, initial encounter; K44.9 Diaphragmatic hernia without obstruction or gangrene; R73.9 Hyperglycemia, unspecified; M25.372 Other instability, left ankle; V89.2XXA Person injured in unspecified motor-vehicle accident, traffic, initial encounter; Y92.410 Unspecified street and highway as the place of occurrence of the external cause; Z79.01 Long term (current) use of anticoagulants; I25.2 Old myocardial infarction
CPT/HCPCS: 28435; 36415; 70450; 71045; 71260; 72125; 72170; 73600; 73610; 74177; 76000; 80048; 82550; 82552; 82948; 83735; 85025; 85027; 85610; 85730; 86850; 86900; 86901; 93005; 93306; 93880; 94150; 99152; 99153; 99211; 99291; C1713; G0390; G0463; J0131; J0690; J1580; J1650; J1885; J2250; J2270; J3010; J7040; J7120; Q9967